=== PATIENT | female | born 1995 | race Caucasian/White ===

== ENCOUNTER 2021-10-06 00:37 | Emergency (ER) | payer MEDICAID ==
[~2021-10-06] VITALS: Ht 165.1 cm; Wt 90.0 kg
[2021-10-06] MEDS ORDERED: DIPHENHYDRAMINE 50MG/ML VIAL IV ONE (01:45)
[2021-10-06] MEDS ORDERED: SODIUM CHLORIDE 0.9% 1,000 ML IV ONE (01:45)
[2021-10-06] MEDS ORDERED: ACETAMINOPHEN 325MG TABLET PO ONE ×2 (01:45→05:00)
[2021-10-06] MEDS: ACETAMINOPHEN 325MG TABLET PO SCH ×2 (02:17→05:07)
[2021-10-06 02:51] LABS: BASOPHILS % 0.3 % (0.0-2.0); EOSINOPHILS % 0.7 % (0.0-5.0); HEMOGLOBIN. 13.5 g/dL (12.0-16.0); LYMPHOCYTES % 9.9 % (20.0-50.0); MEAN CORPUSCULAR HEMOGLOBIN 29.6 pg (28.0-32.0); MEAN CORPUSCULAR VOLUME 89.7 fL (81.0-99.0); MEAN PLATELET VOLUME 7.7 fl (7.4-10.4); NEUTROPHILS % 79.1 % (40.0-76.0); PLATELET 266 x1000/uL (130-400); RED BLOOD CELL COUNT 4.57 mill/uL (4.2-5.4)
[2021-10-06 03:29] LABS: CHLORIDE 109 mEq/L (98-107)
[2021-10-06 06:30] VITALS: BP 115/70
== END 2021-10-06 06:40 | disposition home or self-care (01) ==
LOC: ER 00:37
DX: O26.893 Other specified pregnancy related conditions, third trimester (principal); M79.18 Myalgia, other site; M25.511 Pain in right shoulder; Z3A.35 35 weeks gestation of pregnancy
CPT/HCPCS: 36415; 76815; 80048; 85025; 96361; 96374; 99284; J1200; J7030